=== PATIENT | female | born 1990 | race Caucasian/White ===

== ENCOUNTER 2017-04-24 20:04 | Inpatient (IN) | payer BC ==
[2017-04-24] MEDS ORDERED: MISOPROSTOL 200 MCG TAB PR (21:00)
[2017-04-24] MEDS ORDERED: CARBOPROST 250 MCG INJ IM (21:00)
[2017-04-24] MEDS ORDERED: LIDOCAINE 1% (MPF) 30 ML INJ INJ (21:00)
[2017-04-24] MEDS ORDERED: BUTORPHANOL 2 MG INJ IV ×2 (21:00)
[2017-04-24] MEDS ORDERED: METHYLERGONOVINE 0.2 MG INJ IM (21:00)
[2017-04-24] MEDS ORDERED: OXYTOCIN 30 UNITS/LR 500 ML IV (21:00)
[2017-04-24] MEDS ORDERED: IBUPROFEN 600 MG TAB PO (21:00)
[2017-04-24] MEDS: LACTATED RINGER'S 500 ML IV (21:40)
[2017-04-24] MEDS: AMPICILLIN 2 GM/NS (PMX) 100 ML IV (21:48)
[2017-04-24] MEDS: OXYTOCIN 30 UNITS/LR 500 ML IV (22:12)
[2017-04-24 22:40] LABS: ADD MAN DIFF? NO
[2017-04-24 22:42] LABS: BASOPHILS % 0.2 % (0.0-2.0); EOSINOPHILS % 0.1 % (0.0-7.0); HEMATOCRIT 35.7 % (37.0-47.0); HEMOGLOBIN 12.6 g/dl (12.0-16.0); LYMPHOCYTES # 0.8 10^3/ul (0.8-2.9); LYMPHOCYTES % 9.2 % (15.0-51.0); MEAN CORPUSCULAR HEMOGLOBIN 31.6 pg (29.0-33.0); MEAN CORPUSCULAR HGB CONC 35.3 g/dl (32.0-37.0); MEAN CORPUSCULAR VOLUME 89.5 fl (82.0-101.0); MEAN PLATELET VOLUME 11.1 fl (7.4-10.4); MONOCYTE # 0.8 10^3/ul (0.3-0.9); MONOCYTES % 9.5 % (0.0-11.0); NEUTROPHIL # 6.7 10^3/ul (1.6-7.5); NEUTROPHILS % 80.2 % (39.0-77.0); PLATELET COUNT 166 10^3/UL (140-415); RED BLOOD COUNT 3.99 10^6/ul (4.20-5.40); RED CELL DISTRIBUTION WIDTH 14.2 % (11.5-14.5)
[2017-04-24 22:42] LABS: WHITE BLOOD COUNT 8.4 10^3/ul (4.8-10.8)
[2017-04-24 23:33] LABS: HEPATITIS B SURFACE ANTIGEN NEGATIVE (NEGATIVE)
[2017-04-25 00:23] LABS: INR 0.94; PROTIME 12.7 Sec (11.9-14.9)
[2017-04-25 00:28] LABS: PARTIAL THROMBOPLASTIN TIME 30.9 Sec (25.0-35.0)
[2017-04-25] MEDS ORDERED: LACTATED RINGER'S 1,000 ML IV (01:47)
[2017-04-25] MEDS: AMPICILLIN 1 GM/NS (PMX) 50 ML IV ×4 (01:50→13:47)
[2017-04-25] MEDS: LACTATED RINGER'S 1,000 ML IV* (02:01)
[2017-04-25] MEDS: LACTATED RINGER'S 1,000 ML IV ×2 (08:25→13:50)
[2017-04-25] MEDS ORDERED: FENTAnyl 2MCG/ML-ROPIV 0.2% 100 ML (12:33)
[2017-04-25] MEDS ORDERED: ONDANSETRON 4 MG INJ IV ×2 (17:00→20:30)
[2017-04-25] MEDS ORDERED: DIPHENHYDRAMINE 50 MG INJ IV (17:00)
[2017-04-25] MEDS ORDERED: NALOXONE (0.4 MG/ML) INJ IV (17:00)
[2017-04-25] MEDS: OXYTOCIN 30 UNITS/LR 500 ML IV ×3 (17:52→22:43)
[2017-04-25 18:35] LABS: RAPID PLASMA REAGIN NONREACTIVE (NR)
[2017-04-25] MEDS: FENTAnyl 2MCG/ML-ROPIV 0.2% 100 ML BAG EPI (19:02)
[2017-04-25] MEDS ORDERED: ACETAMINOPHEN 325 MG TAB PO (20:30)
[2017-04-25] MEDS ORDERED: OXYCODONE/ASPIRIN (4.88/325) TAB PO ×2 (20:30)
[2017-04-25] MEDS ORDERED: HYDROCODONE/APAP (5/325) TAB PO ×2 (20:30)
[2017-04-25] MEDS ORDERED: DIBUCAINE 1% 30 GM OINT PR (20:30)
[2017-04-25] MEDS: SENNA/DOCUSATE NA (8.6MG/50MG) TAB PO (21:57)
[2017-04-25] MEDS: WITCH HAZEL/GLYCERIN PAD PR (23:45)
[2017-04-25] MEDS: IBUPROFEN 600 MG TAB PO (23:45)
[2017-04-25] MEDS: BENZOCAINE 20% 56 ML SPRAY TOP (23:45)
[2017-04-25] MEDS: LANOLIN 7 GM TUBE TOP (23:45)
[2017-04-26] MEDS: IBUPROFEN 600 MG TAB PO ×3 (06:05→17:55)
[2017-04-26 09:04] LABS: ADD MAN DIFF? NO
[2017-04-26] MEDS: SENNA/DOCUSATE NA (8.6MG/50MG) TAB PO ×2 (09:13→21:54)
[2017-04-26 09:23] LABS: BASOPHILS % 0.2 % (0.0-2.0); EOSINOPHILS % 0.2 % (0.0-7.0); HEMATOCRIT 32.3 % (37.0-47.0); HEMOGLOBIN 11.3 g/dl (12.0-16.0); LYMPHOCYTES % 15.8 % (15.0-51.0); MEAN CORPUSCULAR HEMOGLOBIN 31.5 pg (29.0-33.0); MEAN PLATELET VOLUME 10.9 fl (7.4-10.4); MONOCYTE # 0.7 10^3/ul (0.3-0.9); NEUTROPHIL # 4.7 10^3/ul (1.6-7.5); PLATELET COUNT 124 10^3/UL (140-415); RED BLOOD COUNT 3.59 10^6/ul (4.20-5.40); RED CELL DISTRIBUTION WIDTH 14.4 % (11.5-14.5)
[2017-04-26 09:23] LABS: WHITE BLOOD COUNT 6.5 10^3/ul (4.8-10.8)
[2017-04-27] MEDS: IBUPROFEN 600 MG TAB PO ×3 (00:04→12:56)
[2017-04-27] MEDS: INFLUENZA VIRUS VACCINE 0.5 ML (DISPENSING) IM* (08:40)
[2017-04-27] MEDS: SENNA/DOCUSATE NA (8.6MG/50MG) TAB PO (08:53)
[2017-04-27] MEDS: MEASLES,MUMPS,RUBELLA VACCINE INJ SC* (12:56)
[2017-04-28] MEDS ORDERED: INFLUENZA VIRUS VACCINE 0.5 ML (DISPENSING) IM* (09:00)
== END 2017-04-27 15:55 | disposition home or self-care (01) | DRG 775 ==
LOC: OBT 20:04 → L-D 04-25 08:34 → PP1 04-25 20:38 → OBT 20:10 → L-D 20:10
PROVIDERS: Obstetrics & Gynecology
PROC: 10E0XZZ Delivery of Products of Conception, External Approach (ICD-10-PCS; principal; 2017-04-25)
PROC: 0HQ9XZZ Repair Perineum Skin, External Approach (ICD-10-PCS; 2017-04-25)
PROC: 3E033VJ Introduction of Other Hormone into Peripheral Vein, Percutaneous Approach (ICD-10-PCS; 2017-04-25)
DX: O48.0 Post-term pregnancy (principal); O70.0 First degree perineal laceration during delivery; Z3A.41 41 weeks gestation of pregnancy; Z37.0 Single live birth
CPT/HCPCS: 62319; 76816; 85025; 85610; 85730; 86592; 86900; 86901; 87340; 90686